=== PATIENT | male | born 1940 | race Caucasian/White ===

== ENCOUNTER 2021-09-29 12:36 | Emergency (ER) | payer MEDICARE ==
[2021-09-29] MEDS ORDERED: Lidocaine 1% (PF) 30 ML VIAL ONE (13:28)
== END 2021-09-29 14:04 | disposition home or self-care (01) ==
LOC: NAV ERS 12:36
DX: S01.111A Laceration without foreign body of right eyelid and periocular area, initial encounter (principal); W18.39XA Other fall on same level, initial encounter; I10 Essential (primary) hypertension; E78.5 Hyperlipidemia, unspecified; E78.00 Pure hypercholesterolemia, unspecified; Z86.73 Personal history of transient ischemic attack (TIA), and cerebral infarction without residual deficits; F17.200 Nicotine dependence, unspecified, uncomplicated; Z79.899 Other long term (current) drug therapy
CPT/HCPCS: 12013; 70450; J2001

== ENCOUNTER 2021-10-05 14:04 | Emergency (ER) | payer MEDICARE | END 2021-10-05 14:20 | disposition home or self-care (01) | LOC: NAV ERS 14:04 | DX: Z48.02 Encounter for removal of sutures (principal); I10 Essential (primary) hypertension; Z86.73 Personal history of transient ischemic attack (TIA), and cerebral infarction without residual deficits; J44.9 Chronic obstructive pulmonary disease, unspecified; E78.5 Hyperlipidemia, unspecified; E78.00 Pure hypercholesterolemia, unspecified; Z87.891 Personal history of nicotine dependence; Z79.899 Other long term (current) drug therapy ==

== ENCOUNTER 2021-11-10 14:58 | Emergency (ER) | payer MEDICARE ==
[2021-11-10] MEDS ORDERED: Lidocaine 1% w/Epinephrine 1:100K 20 ML VIAL ONE (15:25)
[2021-11-10] MEDS ORDERED: Bacitracin 1 PK ONE (15:26)
== END 2021-11-10 17:25 | disposition home or self-care (01) ==
LOC: NAV ERS 14:58
DX: S01.111A Laceration without foreign body of right eyelid and periocular area, initial encounter (principal); I10 Essential (primary) hypertension; E78.5 Hyperlipidemia, unspecified; E78.00 Pure hypercholesterolemia, unspecified; J44.9 Chronic obstructive pulmonary disease, unspecified; W01.0XXA Fall on same level from slipping, tripping and stumbling without subsequent striking against object, initial encounter; Z86.73 Personal history of transient ischemic attack (TIA), and cerebral infarction without residual deficits; Z87.891 Personal history of nicotine dependence; Z79.899 Other long term (current) drug therapy
CPT/HCPCS: 12013; 70450

== ENCOUNTER 2021-11-18 11:22 | Emergency (ER) | payer MEDICARE | END 2021-11-18 11:55 | disposition home or self-care (01) | LOC: NAV ERS 11:22 | DX: S01.111D Laceration without foreign body of right eyelid and periocular area, subsequent encounter (principal); I10 Essential (primary) hypertension; E78.5 Hyperlipidemia, unspecified; E78.00 Pure hypercholesterolemia, unspecified; J44.9 Chronic obstructive pulmonary disease, unspecified; Z86.73 Personal history of transient ischemic attack (TIA), and cerebral infarction without residual deficits; Z87.891 Personal history of nicotine dependence; Z79.899 Other long term (current) drug therapy ==